=== PATIENT | female | born 1985 | race African-American/Black ===

== ENCOUNTER 2023-07-13 08:45 | Emergency (ER) | payer MEDICAID, SELFPAY ==
[2023-07-13 08:51] VITALS: BP 145/87; PULSE 108; RESP 16; TEMP 36.9; O2SAT 100; BMI 30.5
[2023-07-13 11:53] VITALS: BP 141/94; PULSE 93; RESP 16; TEMP 36.9; O2SAT 99
[2023-07-13 19:35] VITALS: BP 141/91; PULSE 63; RESP 16; TEMP 36.6; O2SAT 100
[2023-07-13 22:31] VITALS: BP 132/86; PULSE 101; RESP 16; TEMP 37.1; O2SAT 97
--- NOTE | 2023-07-13 23:43 | ED.CHESTPAIN ---
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 Patient's symptoms started about 2 weeks ago it is mostly in the mid chest and right side chest pain with no radiation, no other associated symptoms,, patient feels the pain is outside on the chest wall had similar pain when she had a mass on her left breast had mammogram about 2 years ago as reported by the patient has fibrocystic cystic breast changes, pain is reproducible to hand touch, no SOB, no recent travel, no lower extremity swelling or tenderness, no family history sudden at young age or cardiac disease at young age. Related Data Allergies Allergy/AdvReac Type Severity Reaction Status Date / Time No Known Allergies Allergy Verified 07/13/23 08:49 [No Known Allergies*] Review of Systems Review of Systems: all other systems are reviewed and are negative Constitutional: Reports as per HPI and Reports no additional constitutional complaints Eyes: Reports as per HPI and Reports no additional eye complaints Reports system reviewed and no additional complaints, except as documented Cardiovascular: Reports as per HPI and Reports no additional cardiovascular complaints Respiratory: Reports as per HPI and Reports no additional respiratory complaints Gastrointestinal: Reports as per HPI and Reports no additional gastrointestinal complaints Genitourinary: Reports no additional female genitourinary complaints Musculoskeletal: Reports no additional musculoskeletal complaints Skin/Breast: Reports system reviewed and no additional complaints, except as docu Psychiatric: Reports no additional psychiatric complaints Endocrine: Reports no additional endocrine complaints Hematologic/Lymphatic: Reports no additional hematologic/lymphatic complaints Allergic/Immunologic: Reports no additional allergic/immunologic complaints Reports system reviewed and no additional complaints, except as documented and Reports Abnormal speech present [facility] Social History Social History Smoked in Last 30 Days: No Use of substances other than those prescribed or required for medical reasons: No Advance Directives: No Physical Exam Vital Signs: Vital Signs: Last Vital Signs Temp 98.7 F 07/13/23 22:31 Pulse 101 H 07/13/23 22:31 Resp 16 07/13/23 22:31 BP 132/86 07/13/23 22:31 Pulse Ox 97 07/13/23 22:31 O2 Del Method Room Air 07/13/23 22:31 BMI result Body Mass Index 30.5 Vital signs have been reviewed and appear to be correct. Blood pressure elevated. Heart rate normal. Respiratory rate normal. Temperature normal. Oxygen saturation normal. Appearance: Alert. Oriented X3. No acute distress. Head: Normal external exam. Normocephalic. Atraumatic. No Carrillo signs noted. No raccoon eyes noted Eyes: PERRLA. EOMI. Conjunctiva and sclera normal. Eyelids normal. ENT: TM's Normal. Pharynx normal. Uvula midline. Moist mucous membranes. No trismus noted. No drooling noted. No muffled voice noted. Neck: Normal inspection. Neck supple. FROM. No adenopathy. Thyroid Normal. No meningeal signs. No neck mass noted. CVS: Normal heart rate and rhythm. Heart sound normal. No murmurs noted. Pulses normal throughout. Respiratory: No respiratory distress. Painless inspiration. Breath sounds normal. No wheezes/rales/rhonchi noted. Chest nontender. No accessory muscle usage noted or decreased air movement noted. Bilateral breast exam: Small 1 x 1 cm mobile nodule in the left breast under the nipple patient stated is been there for 2 years had a mammogram showed fibrocystic change otherwise no lymphadenopathy, no deformity, no step-off. Abdomen: Soft and nontender. Bowel sounds normal in all 4 quadrants. No distention noted. No organomegaly noted. No visible injury noted. Back: No CVA tenderness. Full range of motion noted. Skin: Skin warm and dry. Normal skin color. Normal skin turgor. No rashes/lesions/lacerations noted. Extremities: No lower extremity edema. Extremities exhibit normal range of motion. Extremities nontender. Neuro: Oriented X 3. Cranial nerve exam: II-XII are grossly intact No motor deficit. No sensory deficit. Reflexes normal. Course Reevaluation(s) Reevaluation #1: 38-year-old female with known history of fibrocystic changes of the breast last mammogram was 2 years ago patient was instructed to follow-up with PCP and discuss having another mammogram to evaluate for any other breast mass. Chest pain is clearly originating from the chest wall. Time: 23:50 Medical Decision Making Differential Diagnosis Differential Diagnoses: The differential diagnosis associated with the presentation includes ( ACS, pneumonia, pneumothorax, pleural effusion, breast mass, electrolyte abnormality, severe anemia.) Admission/Observation Consideration of admission/observation: Escalation of care including admission/observation considered Lab Data MDM Lab Attestation statement: I reviewed the patient's lab results. 07/13/23 11:47 07/13/23 11:47 Labs: Lab Results 07/13/23 07/13/23 Range/Units 11:47 15:49 WBC 9.1 (4.8-10.8) X10*3/uL RBC 4.44 (4.20-5.50) X10*6/uL Hgb 11.4 L (12.0-16.0) g/dl Hct 35.9 L (37.0-47.0) % MCV 80.9 (80.0-98.0) fL MCH 25.7 L (27.0-33.0) pg MCHC 31.8 (31.0-35.0) g/dl RDW 16.5 H (11.0-16.0) % Plt Count 348 (160-400) X10*3/uL MPV 9.3 L (9.4-12.3) fL Immature Gran % (Auto) 0.2 (0.0-0.4) % Neut % (Auto) 54.9 (45-73) % Lymph % (Auto) 37.0 (20-40) % [place] % (Auto) 5.8 (2-11) % Eos % (Auto) 1.8 (0-4) % Baso % (Auto) 0.3 (0-2) % Lymph # (Auto) 3.4 (1.2-4.9) X10*3/uL [place] # (Auto) 0.5 (0.1-1.2) X10*3/uL Eos # (Auto) 0.2 (0.0-0.4) X10*3/uL Baso # (Auto) 0.0 (0.0-0.2) X10*3/uL Abs Immat Gran (auto) 0.02 (0.00-0.03) X10*3/uL Absolute Neuts (auto) 5.0 (2.0-8.3) x10*3/uL Absolute Nucleated RBC 0.000 (0.0-0.012) X10*3/uL Nucleated RBC % (auto) 0.0 (0.0-0.2) /100WBC Sodium 139 (135-145) mmol/L Potassium 3.8 (3.3-5.1) mmol/L Chloride 109 H (96-108) mmol/L Carbon Dioxide 23 (22-29) mmol/L Anion Gap 11 L (12-20) BUN 13 (9-16) mg/dL Creatinine 0.78 (0.5-1.4) mg/dL Estim Creat Clear Calc 88.6 Estimated GFR > 60 Random Glucose 109 (60-115) mg/dL Calcium 9.2 (8.4-10.2) mg/dL Troponin I High Sens < 2.7 < 2.7 (<3.5-17.0) ng/L Independent Interpretation I performed an independent interpretation of an: EKG ( normal sinus rhythm at 96 beats per minutes normal axis deviation, normal intervals, no significant change from prior EKG.) and Plain X-Ray ( chest: No acute cardiopulmonary disease.) Radiology Impression Discussion of test interpretation with radiology: I have reviewed the radiologist's reading. Discharge Plan Discharge Clinical Impression: Atypical chest pain Instructions: Breast Mass (ED), Chest Wall Pain (ED) Additional Instructions: discuss with your PCP the need for mammogram. Referrals: Name,MD Leo [Primary Care Provider] -
[2023-07-13 23:56] VITALS: BP 119/80; PULSE 89; RESP 16; O2SAT 96
== END 2023-07-13 23:57 | disposition home or self-care (01) ==
PROVIDERS: Emergency Provider Emergency Medicine; PCP Internal Medicine Geriatric Medicine
DX: R07.89 Other chest pain (principal)
CPT/HCPCS: 36415; 71045; 80048; 84484; 85025; 93005; 99283; 99285

== ENCOUNTER → 2023-07-13 08:54 | Outpatient (BNV) | payer MEDICAID, SELFPAY | PROVIDERS: PCP Internal Medicine Geriatric Medicine; Visit Provider Internal Medicine Cardiovascular Disease | DX: R07.9 Chest pain, unspecified (principal) | CPT/HCPCS: 93010 ==

== ENCOUNTER 2023-08-03 10:37 | Outpatient (REF) | payer MEDICAID, SELFPAY ==
--- NOTE | ~2023-08-03 | US_ITS ---
EXAMINATION: MM DIAGNOSTIC DIGITAL BREAST TOMOSYNTHESIS, BILATERAL US BREAST LIMITED, LEFT MAMMOGRAPHY: CLINICAL INFORMATION: 38-year-old female complaining of palpable periareolar lesion at 3:00 axis left breast. History of benign biopsies on the right in [place]. Patient is due for bilateral screening as well. COMPARISON: Mammography: 02/25/2016, 04/07/2014 ([place]). TECHNIQUE: Digital breast tomosynthesis is performed in both the craniocaudal and mediolateral oblique views along with computer-aided detection (CAD). Synthesized 2D images are generated from the tomosynthesis. In addition, spot compression 3-D left MLO and CC views were obtained, as well as a full-field 3-D left ML view. FINDINGS: The breasts are heterogeneously dense, which may obscure small masses (ACR BI-RADS breast composition Category c). There are 2 post benign biopsy clips in the inferior and medial right breast. There are numerous bilateral circumscribed oval and rounded masses, consistent with numerous cysts, the majority of which appear smaller than on prior exams. The 2 oval masses in the right inferior breast are smaller than previous, consistent with benign entities. Parenchyma appears fibrocystic and nodular. This is stable. There are numerous scattered calcifications bilaterally within the parenchyma of both breasts, the majority of which layer on the ML image, suggesting milk of calcium with likely superimposed adenosis. These findings are similar to prior of 2016. No suspicious grouped calcifications are evident. No definite mass or area of architectural distortion is seen in the periareolar left breast in the region of palpable concern 3:00 axis. There is no skin or axillary abnormality. ULTRASOUND: CLINICAL INFORMATION: As above. Palpable focus 3:00 periareolar left breast. Fibrocystic breast parenchyma. COMPARISON: None contributory. TECHNIQUE: Targeted sonographic evaluation was performed using a high frequency linear transducer. Attention was given to the 3:00 axis left breast in the region of palpable concern as directed by the patient. Selected archived documentation. FINDINGS: LEFT BREAST: -There are innumerable cysts noted throughout the parenchyma of the left breast in the scanned regions, consistent with extensive fibrocystic changes. In addition, there is marked duct ectasia in the retroareolar region of the left breast. No filling defect or intraductal mass is evident. There is a focally ectatic duct in the 3:00 axis, 2 cm from the nipple, measuring 1.0 x 0.6 x 0.7 cm, with good through transmission, slightly lobulated border, and a small amount of mobile debris seen within. This appears connected to a accessory duct which courses anteriorly into the periareolar region. No associated abnormal mass or color doppler flow identified involving this structure. This finding is benign. This likely represents the patient's palpable abnormality. To be cautious, six-month interval targeted left breast ultrasound recommended to ensure stability. US/US breast LT limited mamm only IMPRESSION: There are no findings suspicious for malignancy in either breast. -The patient appears to be feeling a focally ectatic duct in the 3:00 axis of the left breast, 2 cm from the nipple, measuring 1.0 x 0.6 x 0.7 cm. Because of the slightly lobulated border, and mild specular debris internally, six-month interval follow-up targeted left breast ultrasound recommended to ensure stability. -There are numerous cysts and fibrocystic changes throughout both heterogeneously dense parenchymal regions. There are also numerous scattered parenchymal calcifications, which layer on the left ML view suggesting milk of calcium and benignity. No suspicious calcifications. -2 prior benign biopsies in the right breast inferior one half. OVERALL ASSESSMENT: Mammography: BI-RADS 3 - Probably benign finding(s) - 6 month follow-up suggested Ultrasound: BI-RADS 3 - Probably benign finding(s) - 6 month follow-up suggested RECOMMENDATION: 6 Month F/U Results were provided to the patient at time of visit by the technologist. This patient's information was entered into a reminder system with a target due date for their next mammogram.
== END 2023-08-03 10:38 | disposition home or self-care (01) ==
LOC: HO.MAMMO 10:37
PROVIDERS: PCP Internal Medicine Geriatric Medicine; Visit Provider Nurse Practitioner Family
DX: N63.42 Unspecified lump in left breast, subareolar (principal)
CPT/HCPCS: 76642; 77062; 77066

== ENCOUNTER → 2023-08-03 11:00 | Outpatient (BNV) | payer MEDICAID, SELFPAY | PROVIDERS: PCP Internal Medicine Geriatric Medicine; Visit Provider Radiology Diagnostic Radiology | DX: N63.42 Unspecified lump in left breast, subareolar (principal) | CPT/HCPCS: 76642; 77062; 77066 ==

== ENCOUNTER 2024-02-13 14:32 | Outpatient (REF) | payer MEDICAID, SELFPAY ==
--- NOTE | ~2024-02-13 | US_ITS ---
EXAMINATION: US DIAGNOSTIC ULTRASOUND BREAST, LEFT CLINICAL INFORMATION: 6 month follow-up for hypoechoic probably benign focally ectatic duct with debris in the 3:00 axis of the left breast. COMPARISON: 08/03/2023 TECHNIQUE: Ultrasound of the left breast is performed with real-time landaverde scale imaging and color Doppler. Attention was given to the 2:00 axis through the 4:00 axis to include the region of concern. FINDINGS: A focally ectatic duct filled with mild specular debris at the 2:00 axis of the left breast, 2 cm from the nipple, currently measures visually and mammographically smaller (currently 0.6 x 0.7 x 0.9 cm and previously 1.0 x 0.6 x 1.1 cm). It is hence benign, and no further follow-up recommended. There are associated fibrocystic changes with small daughter cysts present. US/US breast LT limited mamm only IMPRESSION: Slightly smaller rounded ectatic duct in the left breast 2:00 axis, 2 cm from the nipple, with associated fibrocystic changes are benign. No further follow-up recommended. Recommend the patient resume screening mammography in one year. ASSESSMENT: BI-RADS 2 - Benign Findings RECOMMENDATION: 1 year F/U This patient's information was entered into a reminder system with a target due date for their next mammogram.
== END 2024-02-13 14:33 | disposition home or self-care (01) ==
LOC: HO.MAMMO 14:32
PROVIDERS: Visit Provider Internal Medicine Geriatric Medicine
DX: N60.02 Solitary cyst of left breast (principal)
CPT/HCPCS: 76642

== ENCOUNTER → 2024-02-13 15:30 | Outpatient (BNV) | payer MEDICAID, SELFPAY | PROVIDERS: Visit Provider Radiology Diagnostic Radiology | DX: N63.25 Unspecified lump in the left breast, overlapping quadrants (principal) | CPT/HCPCS: 76642 ==

== ENCOUNTER 2024-04-09 16:17 | Outpatient (REF) | payer MEDICAID, SELFPAY ==
[2024-04-09 17:39] LABS: MANUAL DIFF FLAG NO
[2024-04-09 18:13] LABS: Basophils Percent Auto 0.2 % (0-2); Eosinophils Absolute Auto 0.1 X10*3/uL (0.0-0.4); Eosinophils Percent Auto 0.9 % (0-4); Hematocrit 29.5 % (37.0-47.0); Hemoglobin 9.2 g/dl (12.0-16.0); Imm Gran Abs Auto 0.02 X10*3/uL (0.00-0.03); Imm Gran Pct Auto 0.2 % (0.0-0.4); Lymphocytes Percent Auto 22.8 % (20-40); Mean Corpuscular HGB Conc 31.2 g/dl (31.0-35.0); Mean Corpuscular Hemoglobin 22.8 pg (27.0-33.0); Mean Corpuscular Volume 73.2 fL (80.0-98.0); Mean Platelet Volume 9.3 fL (9.4-12.3); Monocytes Absolute Auto 0.7 X10*3/uL (0.1-1.2); Monocytes Percent Auto 8.5 % (2-11); Neutrophils Absolute Auto 5.9 x10*3/uL (2.0-8.3); Neutrophils Percent Auto 67.4 % (45-73); Platelet Count 453 X10*3/uL (160-400); Red Blood Count 4.03 X10*6/uL (4.20-5.50); Red Cell Distribution Width 20.6 % (11.0-16.0); White Blood Count 8.7 X10*3/uL (4.8-10.8)
[2024-04-09 18:26] LABS: Alanine Aminotransferase 15 U/L (0-31); Albumin Level 3.9 g/dL (3.5-5.0); Alkaline Phosphatase 65 U/L (39-117); Anion Gap 13 (12-20); Aspartate Amino Transferase 16 U/L (5-31); Bilirubin Total 0.4 mg/dL (0.0-1.0); Blood Urea Nitrogen 12 mg/dL (9-16); C Reactive Protein 6.31 mg/dL (< or = 0.50); Calcium 9.4 mg/dL (8.4-10.2); Carbon Dioxide 23 mmol/L (22-29); Chloride 106 mmol/L (96-108); Estimated Glomerular Filt Rate > 60; Glucose Random 102 mg/dL (60-115); Potassium 3.5 mmol/L (3.3-5.1); Sodium 138 mmol/L (135-145); Total Protein 7.9 g/dL (6.5-8.0)
== END 2024-04-09 16:18 | disposition home or self-care (01) ==
LOC: HO.HHCL 16:17
PROVIDERS: Visit Provider Family Medicine
DX: R10.32 Left lower quadrant pain (principal)
CPT/HCPCS: 36415; 80053; 85025; 86140

== ENCOUNTER 2024-08-05 09:07 | Outpatient (REF) | payer MEDICAID, SELFPAY ==
--- OUTSIDE RECORDS SUMMARY | 2024-08-05 13:26 | XMS_ITS | Clinical Summary ---
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 180 tablet 07/27/19 24 Active ferrous sulfate 325 (65 Fe) MG EC tabletIndicatio ns:Microcytic anemia TAKE 1 TABLET BY MOUTH WITH BREAKFAST 90 tablet 07/08/20 24 Active ferrous sulfate 325 (65 Fe) MG EC tabletIndicatio ns:Microcytic anemia TAKE 1 TABLET (325 MG) BY MOUTH WITH BREAKFAST 90 tablet 04/10/20 24 024 Discontinued Active Problems Problem Noted Date Diagnosed Date Subareolar mass of left breast 07/25/2023 Assessment & Plan (07/25/2023 2:11 PM EST): Has US already scheduled for left breast on 08/03/23, I told her that we'll decide on right breast US, after dx ammo. Dx mammo remi to be sent to [facility] [place] per protocol (see encounters) Elevated blood pressure reading 07/25/2023 Assessment & Plan (07/25/2023 2:09 PM EST): BP machine sent to [facility] pharmacy, should check BP three times per week and fu with PCP in 1m Counseled re low salt intake, weight reduction. Gastroesophageal reflux disease 07/25/2023 Assessment & Plan (07/25/2023 2:10 PM EST): Most likely culprit of current sxs. Counseled re small and fractioned meals, avoid going to bed right after meals, avoid spicy or greasy food Complete info re life style modification and GERD given today Start Prilosec 20mg bid x 1m and fu w PCP Herpes zoster without complication 07/20/2023 07/20/2023 Goiter 02/23/2016 07/20/2023 Fibroadenoma of breast 02/23/2016 4 Encounters Date Type Department Care Team Description 07/06/2024 Refill [facility] [address] [place] [id number] Tai Geronimo MD Microcytic anemia from Last 3 Months Social History Tobacco Use Types Packs/Day Years Used Date Smoking Tobacco: Never Smokeless Tobacco: Never Tobacco Cessation:Counseling Given: Not Answered Alcohol Use Standard Drinks/Week Comments Never 0 (1 standard drink = 0.6 oz pur e alcohol) Depression Answer Date Recorded Patient Health Questionnaire-9 Score 2 07/07/2023 Patient Health Questionnaire-9 Score 2 07/07/2023 Last PHQ-9: Questionnaire Data Not on file 1 Housing Stability Answer Date Recorded What is your housing situation today? I have brionna manuel 07/07/[address] you li ve. Do you have problems with any of the following? None of the above 07/07/2023 Food Insecurity Answer Date Recorded Within the past 12 months, y ou worried that your food would run out before you got money to buy more: Never True 07/07/2023 Within the past 12 months,th e food you bought just didn't last and you didn't have enough money to get more: Never True Transportation Answer Date Recorded In the past 12 months, has l ack of transportation kept you from medical appts, meetings, work or from getting things needed for daily living? No 07/07/2023 Utilities Answer Date Recorded In the past 12 months, has t he electric, gas, oil or water company threatened to shut off services in your home? I am not sure 07/07/2023 Depression Answer Date Recorded Patient Health Questionnaire-2 Score 0 07/07/2023 Comments Unknown Sex and Gender Information Value Date Recorded Sex Assigned at Female 05/09/2022 10:29 AM EDT Legal Sex Female 10:29 AM EDT Gender Identity Female 05/09/2022 10:29 AM EDT Sexual Orientation Straight 05/09/2022 10 :29 AM EDT Last Filed Vital Signs Vital Sign Reading Time Taken Comments Blood Pressure 139/91 04/08/2024 5:19 PM EDT Pulse 108 04/08/2024 5:19 PM EDT Temperature 36.8 ??C (98.3 ??F) 04/08/2024 5:19 PM ED T Respiratory Rate 20 04/08/2024 5:19 PM EDT Oxygen Saturation 99% 04/08/2024 5:19 PM EDT Inhaled Oxygen Concentration - - Weight 72.1 kg (159 lb) 04/08/2024 5:19 PM EDT Height 154.9 cm (5' 1 ) 04/08/2024 5:19 PM EDT Body Mass Index 30.04 04/08/2024 5:19 PM EDT Plan of Treatment Health Maintenance Due Date Last Done Comments HIV Screening 1984 Alcohol/Substance Use Screening 1996 Family Planning (PISQ) 1999 Hepatitis C Screening 2002 DTaP/Tdap/Td Vaccines (1 - Tdap) 2003 Hepatitis B Vaccines (1 of 3 - 19+ 3-dose series) 2003 Pap Smear 2005 Cervical Cancer Screening 2014 HPV/Cotest 2014 COVID-19 Vaccine (3 - 2023-2 5 season) 2024 04/02/2021, 03/12/2021 Influenza Vaccine (#1) 2024 Depression Screening 07/07/2024 07/07/2023, 07/07/2023 SDOH Screening 07/07/2024 07/07/2023 Tobacco Screening 04/08/2025 04/08/2024 Mammogram 02/12/2026 02/13/2024, 08/03/2023, 08/03/2023 Zoster Vaccines (1 of 2) 2034 RSV Patients and Patients Aged 60 years or older (1 - 1-dose 75+ series) 2059 HIB Vaccines Aged Out No longer eligi ble based on patient's age to complete this topic HPV Vaccines Aged Out No longer eligi ble based on patient's age to complete this topic Hepatitis A Vaccines Aged Out No long er eligible based on patient's age to complete this topic IPV Vaccines Aged Out No longer eligi ble based on patient's age to complete this topic Meningococcal Vaccine Aged Out No franko viviana eligible based on patient's age to complete this topic Pneumococcal Vaccine: Pediatrics (0 to 5 Years) and At-Risk Patients (6 to 64 Years) Aged Out No longer eligible b ased on patient's age to complete this topic RSV under 20 months Aged Out No longe r eligible based on patient's age to complete this topic Rotavirus Vaccines Aged Out No longer eligible based on patient's age to complete this topic Procedures Procedure Name Priority Date/Time Associated Diagnosis Comments BI US BREAST LIMITED LEFT Routine 02/13/2024 3:30 PM EDT from Last 3 Months or Most Recently Relevant to Health Maintenance Results * BI US Breast Limited Left (02/13/2024 3:30 PM EDT) Anatomical Region Laterality Modality Breast Left Ultrasound 02/13/2024 3:30 PM EDT Narrative 02/13/2024 4:28 PM EDT ? [facility] ? [address] ?[place] [address] ? Ultrasound Report ? Signed ? Patient: Isma,Leia R ?MR#: [id number] ?? 6 ? : 1985 ?Acct:[id number] ? Age/Sex: 38 / F ?ADM Date: 02/13/24 ? Loc: HO.MAMMO ? Attending Dillon Joiner MD ? Ordering Physician: Name,Leo MOJICA ?? Date of Service: 02/13/24 ?? Procedure(s): US breast LT limited mamm only ?? Accession Number(s): [id number] ? cc: NameLeo MD ? EXAMINATION: ?? US DIAGNOSTIC ULTRASOUND BREAST, LEFT ? CLINICAL INFORMATION: ? 6 month follow-up for hypoechoic probably benign focally ectatic duct ?? with debris in the 3:00 axis of the left breast. ? COMPARISON: ?? 08/03/2023 ? TECHNIQUE: ?? Ultrasound of the left breast is performed with real-time landaverde scale ?? imaging and color Doppler. Attention was given to the 2:00 axis through ?? the 4:00 axis to include the region of concern. ? FINDINGS: ? A focally ectatic duct filled with mild specular debris at the 2:00 ?? axis of the left breast, 2 cm from the nipple, currently measures ?? visually and mammographically smaller (currently 0.6 x 0.7 x 0.9 cm and ?? previously 1.0 x 0.6 x 1.1 cm). It is hence benign, and no further ?? follow-up recommended. There are associated fibrocystic changes with ?? small daughter cysts present. ? US/US breast LT limited mamm only ?? IMPRESSION: ?? Slightly smaller rounded ectatic duct in the left breast 2:00 axis, 2 ?? cm from the nipple, with associated fibrocystic changes are benign. No ?? further follow-up recommended. ? Recommend the patient resume screening mammography in one year. ? ASSESSMENT: ? BI-RADS 2 - Benign Findings ? RECOMMENDATION: ?? 1 year F/U ? This patient's information was entered into a reminder system with a ?? target due date for their next mammogram. ? Dictated By: ?Travis Echols MD ? Signed By: ?<Electronically signed by Travis Echols MD in OV> ?02/13/24 1625 ? DD/ 1530 ? TD/TT: ? Ticket Collector Or Usher: ? Procedure Note Samina, Image - 02/13/2024 [facility] [address] [place] [address] [place]. [place], [place] [id number] Ultrasound Report Signed Patient: Leia Ashby R#: [id number] 6 : 1985Acct:[id number] Age/Sex: 38 / FADM Date: 02/13/24 Loc: [facility] Attending Dr: Leo Joiner MD Ordering Physician: Leo Joiner MD Date of Service: 02/13/24 Procedure(s): US breast LT limited mamm only Accession Number(s): [id number] cc: Leo Joiner MD EXAMINATION: US DIAGNOSTIC ULTRASOUND BREAST, LEFT CLINICAL INFORMATION: 6 month follow-up for hypoechoic probably benign focally ectatic duct with debris in the 3:00 axis of the left breast. COMPARISON: 08/03/2023 TECHNIQUE: Ultrasound of the left breast is performed with real-time landaverde scale imaging and color Doppler. Attention was given to the 2:00 axis through the 4:00 axis to include the region of concern. FINDINGS: A focally ectatic duct filled with mild specular debris at the 2:00 axis of the left breast, 2 cm from the nipple, currently measures visually and mammographically smaller (currently 0.6 x 0.7 x 0.9 cm and previously 1.0 x 0.6 x 1.1 cm). It is hence benign, and no further follow-up recommended. There are associated fibrocystic changes with small daughter cysts present. US/US breast LT limited mamm only IMPRESSION: Slightly smaller rounded ectatic duct in the left breast 2:00 axis, 2 cm from the nipple, with associated fibrocystic changes are benign. No further follow-up recommended. Recommend the patient resume screening mammography in one year. ASSESSMENT: BI-RADS 2 - Benign Findings RECOMMENDATION: 1 year F/U This patient's information was entered into a reminder system with a target due date for their next mammogram. 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
--- OUTSIDE RECORDS SUMMARY | 2024-08-05 13:26 | XMS_ITS | Encounter Summary ---
Author Organization [employer] Address [address] [place] [address] Care Team Providers Care Weight Tester Name Role Phone Name, Leo MOJICA Primary Care Provider [phone] Reason for Visit * Reason Comments Med Refill Encounter Details Date Type Department Care Team ([facility] st Contact Info) Description 07/06/2024 Refill [facility] [address] [place], [place] [id number] Tai Geronimo MD [address] [place] [address] Microcytic anemia Social History Tobacco Use Types Packs/Day Years Used Date Smoking Tobacco: Never Smokeless Tobacco: Never Alcohol Use Standard Drinks/Week Comments Never 0 [...] Orientation Straight 05/09/2022 10 :29 AM EDT documented as of this encounter Plan of Treatment Not on file documented as of this encounter Visit Diagnoses Diagnosis Microcytic anemia Unspecified iron deficiency anemia documented in this encounter Additional Health Concerns Assessment Noted Time PHQ-9 Depression Total Score: 2 07/07/20 23 10:07 AM EST documented as of this encounter Care Teams Weight Tester Relationship Specialty Start Date End Date Name, MD Leo [address] [place] [address] PCP - General Internal Medicine 07/25/23 documented as of this encounter
--- OUTSIDE RECORDS SUMMARY | 2024-08-05 13:26 | XMS_ITS | Encounter Summary ---
Author Organization Info [facility] Address [address] [place] [address] 7t [place] [address] Care Team Providers Care Domestic Travel Consultant Name Role Phone Name, Leo MOJICA Primary Care Provider [phone] Leo Joiner MD Primary Care Provider Encounter Details Date Type Department Care Team (Latest Contact Info) Description 11/07/2018 Abstract [facility] CONVERSIONS Dental, Provider, DDS Social History Tobacco Use Types Packs/Day Years Used Date Smoking Tobacco: Never Assessed Comments Unknown Sex and Gender Information Value Date Recorded Sex Assigned at Female 05/09/2022 10:29 AM EDT Legal Sex Female 10:29 AM EDT Gender Identity Female 05/09/2022 10:29 AM EDT Sexual Orientation Straight 05/09/2022 10 :29 AM EDT documented as of this encounter Plan of Treatment Not on file documented as of this encounter Visit Diagnoses Not on filedocumented in this encounter Care Teams Domestic Travel Consultant Relationship Specialty Start Date End Date Leo Joiner MD [address] [place] [address] PCP - General Family Medicine 02/08/16 07/12/23 Leo Joiner MD [address] [place] [address] PCP - General Internal Medicine 07/25/23 documented as of this encounter
== END 2024-08-05 09:08 | disposition home or self-care (01) ==
LOC: HO.MAMMO 09:07
PROVIDERS: PCP Internal Medicine Geriatric Medicine; Visit Provider Internal Medicine Geriatric Medicine
DX: Z12.31 Encounter for screening mammogram for malignant neoplasm of breast (principal)
CPT/HCPCS: 77063; 77067

== ENCOUNTER → 2024-08-05 09:15 | Outpatient (BNV) | payer MEDICAID, SELFPAY | PROVIDERS: PCP Internal Medicine Geriatric Medicine; Visit Provider Internal Medicine | DX: Z12.31 Encounter for screening mammogram for malignant neoplasm of breast (principal) | CPT/HCPCS: 77063; 77067 ==

== ENCOUNTER 2024-09-26 12:47 | Outpatient (REF) | payer MEDICAID, SELFPAY ==
--- NOTE | ~2024-09-26 | US_ITS ---
EXAMINATION: MM DIAGNOSTIC DIGITAL BREAST TOMOSYNTHESIS, BILATERAL Limited bilateral ultrasound. CLINICAL INFORMATION: Call back from screening for bilateral asymmetries. COMPARISON: Mammography: Priors on PACS. TECHNIQUE: Digital breast tomosynthesis is performed in both the craniocaudal and mediolateral oblique views along with computer-aided detection (CAD). Synthesized 2D images are generated from the tomosynthesis. FINDINGS: The breasts are heterogeneously dense, which may obscure small masses (ACR BI-RADS breast composition Category c). Left: Asymmetry in the superior left breast on MLO view partially effaces on additional imaging projections. There is no suspicious calcifications or other abnormal findings. Targeted color Doppler ultrasound scanning in the upper central breast from 10-2 o'clock demonstrates multiple simple cysts. There is no sonographic abnormality. Right: Targeted color Doppler ultrasound scanning in the right axilla demonstrates multiple normal-appearing axillary lymph nodes and normal axillary tissue. One of these axillary lymph nodes likely correlates with the oval low axillary mass which had morphology of an axillary lymph node. US/US breast BI limited mamm only IMPRESSION: Right: Normal low axillary lymph node. Benign. Left: 1. Multiple simple cysts. Benign. 2. Asymmetry superior left breast without sonographic correlate. Recommend 6 month follow-up left breast mammography for further evaluation of stability. ASSESSMENT: BI-RADS BI-RADS 3 - Probably benign finding(s) - 6 month follow-up suggested RECOMMENDATION: 6 Month F/U Results were provided to the patient at time of visit by the technologist. This patient's information was entered into a reminder system with a target due date for their next mammogram. Electronically signed by: Anitha Nation DO 09/26/2024 02:23 PM EDT
== END 2024-09-26 12:48 | disposition home or self-care (01) ==
LOC: HO.MAMMO 12:47
PROVIDERS: PCP Internal Medicine Geriatric Medicine; Visit Provider Internal Medicine Geriatric Medicine
DX: N64.89 Other specified disorders of breast (principal); R92.333 Mammographic heterogeneous density, bilateral breasts; N60.02 Solitary cyst of left breast
CPT/HCPCS: 76642; 77061; 77065

== ENCOUNTER → 2024-09-26 13:30 | Outpatient (BNV) | payer MEDICAID, SELFPAY | PROVIDERS: PCP Internal Medicine Geriatric Medicine; Visit Provider Internal Medicine | DX: R92.8 Other abnormal and inconclusive findings on diagnostic imaging of breast (principal) | CPT/HCPCS: 76642; 77061; 77065 ==

== ENCOUNTER 2025-03-31 08:23 | Outpatient (REF) | payer MEDICAID, SELFPAY ==
--- NOTE | ~2025-03-31 | MM_ITS ---
EXAMINATION(S): MM DIAGNOSTIC DIGITAL BREAST TOMOSYNTHESIS, LEFT CLINICAL INFORMATION: This is a 6-month follow-up of left breast asymmetry in the superior breast on the MLO view without sonographic correlate. COMPARISON: Bilateral mammogram on August 05, 2024. Left breast diagnostic mammogram/ultrasound on September 26, 2024 TECHNIQUE: Digital breast tomosynthesis is performed in both the mediolateral oblique and craniocaudal views along with computer-aided detection (CAD). Synthesized 2D images are generated from the tomosynthesis. Spot compression tomosynthesis were obtained. FINDINGS: BREAST COMPOSITION: The breasts are heterogeneously dense, which may obscure small masses (ACR BI-RADS breast composition Category c). LEFT BREAST: Previously suggested asymmetry in the upper breast on the MLO view, that partially effaces with spot compression, is similar to September 2024. MM/MM tomosynthesis diagnostic LT IMPRESSION: LEFT BREAST: Asymmetry in the upper breast on the MLO view, unchanged from September 2024. Probably benign. Short-term follow-up is recommended as bilateral diagnostic mammogram expected in July 2025. ASSESSMENT: BI-RADS 3 - Probably benign finding(s) - 6 month follow-up suggested RECOMMENDATION: 6 Month F/U Results were provided to the patient at time of visit by the technologist. This patient's information was entered into a reminder system with a target due date for their next mammogram. Electronically signed by: Edwin Whitfield MD 03/31/2025 08:52 AM EDT
--- OUTSIDE RECORDS SUMMARY | 2025-03-31 09:33 | XMS_ITS | Encounter Summary ---
Author Organization [employer] Address [address] [facility] 7[address] [place] [address] Care Team Providers Care Assistant Child Care Teacher Name Role Phone Name, Leo MOJICA Primary Care Provider [phone] Leo Joiner MD Primary Care Provider [phone] Encounter Details Date Type Department Care Team (Latest Contact Info) Description 11/07/2018 Abstract C CONVERSIONS Dental, Provider, DDS Social History Tobacco [...] on filedocumented in this encounter Care Teams Assistant Child Care Teacher Relationship Specialty Start Date End Date Leo Joiner MD [address] [place] [address] PCP - General Family Medicine 02/08/16 07/12/23 Leo Joiner MD [address] [place] [address] PCP - General Internal Medicine 07/25/23 documented as of this encounter
--- OUTSIDE RECORDS SUMMARY | 2025-03-31 09:33 | XMS_ITS | Clinical Summary ---
Author Organization [employer] Address [address] [facility] 7t [place] [address] Care Team Providers Care Tractor Trailer Operator Name Role Phone Name, Leo MOJICA Primary Care Provider [phone] Allergies No known active allergies Medications Blood Pressure Monitor kitIndications:E levated blood pressure reading Use as directed 3x/week 1 kit 4 Active Omeprazole 20 MG tablet delayed-releaseI ndications:Gastr oesophageal reflux disease, unspecified whether esophagitis present Take 1 tablet by mouth 2 times daily. 180 tablet 4 Active ferrous sulfate 325 (65 Fe) MG EC tabletIndication s:Microcytic anemia TAKE 1 TABLET BY MOUTH WITH BREAKFAST 90 tablet 4 Active Active Problems Problem Noted Date Diagnosed Date Abscess of right breast 10/17/2024 Assessment & Plan (10/17/2024 1:44 PM EDT): Likely developing abscess. Swelling on exam consistent with small pustule, approx. 1 cm, induration, mild erythema. No drainage. -prescribed cephalexin (Keflex) 500 MG, Take 1 capsule (500 mg) by mouth 3 times daily for 5 days Subareolar mass of left breast 07/25/2023 Assessment & Plan (07/25/2023 2:11 PM EST): Has US already scheduled for left breast on 08/03/23, I told her that we'll decide on right breast US, after dx ammo. Dx mammo remi to be sent to [facility] per protocol (see encounters) Elevated blood pressure reading 07/25/2023 Assessment & Plan (07/25/2023 2:09 PM EST): BP machine sent to [facility] pharmacy, should check BP three times [...] Encounters Date Type Department Care Team Description 03/31/2025 Orders Only [facility] MEDICINE [address] [place] [address] Name, MD Leo from Last 3 Months Social History Tobacco [...] Sign Reading Time Taken Comments Blood Pressure 133/90 10/17/2024 12:57 PM EDT Pulse 101 10/17/2024 12:57 PM EDT Temperature 36.6 C (97.9 F) 10/17/2024 12:57 PM EDT Respiratory Rate 16 10/17/2024 12:57 PM EDT Oxygen Saturation 99% 04/08/2024 5:19 PM EDT Inhaled Oxygen Concentration - - Weight 72.7 kg (160 lb 3.2 oz) 10/17/2024 12:57 PM EDT Height 154.9 cm (5' 1 ) 10/17/2024 12:57 PM EDT Body Mass Index 30.27 10/17/2024 12:57 PM EDT Plan of Treatment Health Maintenance Due Date Last Done Comments HIV Screening 1984 Disability Screening 1984 Alcohol/Substance Use Screening 1996 Family Planning (PISQ) 1999 HPV Vaccines (1 - 3-dose series) 1999 Hepatitis C Screening 2002 DTaP/Tdap/Td Vaccines (1 - Tdap) 2003 Hepatitis B Vaccines (1 of 3 - 19+ 3-dose series) 2003 Pap Smear 2005 Cervical Cancer Screening 2014 HPV/Cotest 2014 Depression Screening 07/07/2024 07/07/2023, 07/07/20 23 SDOH Screening 07/07/2024 07/07/2023 COVID-19 Vaccine ( season) 2025 04/02/2021, 03/12/2021 Influenza Vaccine (#1) 2025 Diagnostic Breast Imaging 04/30/20252024, 09/26/2024, 09/26/2024, Additional history exists Tobacco Screening 10/17/2025 10/17/2024 Mammogram 03/31/2027 03/31/2025, /, 09/26/2024, Additional history exists Zoster Vaccines (1 of 2) 2034 RSV [...] patient's age to complete this topic Meningococcal B Vaccine Aged Out No l onger eligible based on patient's age to complete this topic Meningococcal Vaccine Aged Out No franko viviana eligible based on patient's age to complete this topic Pneumococcal Vaccine: Pediatrics (0 to 5 Years) and At-Risk Patients (6 to 49) Years Aged Out No longer eligible based on patient's age to complete this topic RSV under 20 months Aged Out No longe r eligible based on patient's age to complete this topic Rotavirus Vaccines Aged Out No longer eligible based on patient's age to complete this topic Procedures Procedure Name Priority Date/Time Associated Diagnosis Comments BI MAMMOGRAM DIAGNOSTIC TOMOSYNTHESIS LEFT Routine 03/31/2025 8:28 AM EDT from Last 3 Months Results * BI Mammogram Diagnostic Tomosynthesis Left (03/31/2025 8:28 AM EDT) Anatomical Region Laterality Modality Breast Left Mammography 03/31/2025 8:28 AM EDT Narrative 03/31/2025 8:54 AM EDT [facility] [address] [place] [address] Dr. [place], [place] [address] Mammography Report Signed Patient: Leia Ashby MR#: [id number] 6 : 1985 Acct:[id number] Age/Sex: 39 / F ADM Date: 03/31/25 Loc: HO.MAMMO Attending Dr: Leo Joiner MD Ordering Physician: Leo Joiner MD Results: 3.6MProbab ly Benign Finding - Short 6 M F/U Suggested Date of Service: 03/31/25 Follow Up: 6 Month F/U Procedure(s): MM tomosynthesis diagnostic LT Accession Number(s): [id number] cc: Rhys,Leo MOJICA Reason For Exam: LT BR 6M F/U FOR DENSITY EXAMINATION(S): MM DIAGNOSTIC DIGITAL BREAST TOMOSYNTHESIS, LEFT CLINICAL INFORMATION: This is a 6-month follow-up of left breast asymmetry in the superior breast on the MLO view without sonographic correlate. COMPARISON: Bilateral mammogram on August 05, 2024. Left breast diagnostic mammogram/ultrasound on September 26, 2024 TECHNIQUE: Digital breast tomosynthesis is performed in both the mediolateral oblique and craniocaudal views along with computer-aided detection (CAD). Synthesized 2D images are generated from the tomosynthesis. Spot compression tomosynthesis were obtained. FINDINGS: BREAST COMPOSITION: The breasts are heterogeneously dense, which may obscure small masses (ACR BI-RADS breast composition Category c). LEFT BREAST: Previously suggested asymmetry in the upper breast on the MLO view, that partially effaces with spot compression, is similar to September 2024. MM/MM tomosynthesis diagnostic LT IMPRESSION: LEFT BREAST: Asymmetry in the upper breast on the MLO view, unchanged from September 2024. Probably benign. Short-term follow-up is recommended as bilateral diagnostic mammogram expected in July 2025. ASSESSMENT: BI-RADS 3 - Probably benign finding(s) - 6 month follow-up suggested RECOMMENDATION: 6 Month F/U Results were provided to the patient at time of visit by the technologist. This patient's information was entered into a reminder system with a target due date for their next mammogram. Electronically signed by: Edwin Whitfield MD 03/31/2025 08:52 AM EDT Dictated By: Edwin Whitfield MD Signed By: <Electronically signed by Edwin Whitfield MD in OV> 03/31/25 0852 DD/ TD/TT: 03/31/25 0835 Managing Consultant: Procedure Note Donotuseinterpreter, Image - 03/31/2025 [facility] [address] [place], [place] [address] Mammography Report Signed Patient: Leia Ashby RMR#: [id number] 6 : 1985Acct:[id number] Age/Sex: 39 / FADM Date: 03/31/25 Loc: HO.MAMMO Attending Dr: Leo Joiner MD Ordering Physician: Leo Joiner MDResults: 3.6MProbab ly Benign Finding - Short 6 M F/U Suggested Date of Service: 03/31/25Follow Up: 6 Month F/U Procedure(s): MM tomosynthesis diagnostic LT Accession Number(s): [id number] cc: Name,Leo MOJICA Reason For Exam: LT BR 6M F/U FOR DENSITY EXAMINATION(S): MM DIAGNOSTIC DIGITAL BREAST TOMOSYNTHESIS, LEFT CLINICAL INFORMATION: This is a 6-month follow-up of left breast asymmetry in the superior breast on the MLO view without sonographic correlate. COMPARISON: Bilateral mammogram on August 05, 2024. Left breast diagnostic mammogram/ultrasound on September 26, 2024 TECHNIQUE: Digital breast tomosynthesis is performed in both the mediolateral oblique and craniocaudal views along with computer-aided detection (CAD). Synthesized 2D images are generated from the tomosynthesis. Spot compression tomosynthesis were obtained. FINDINGS: BREAST COMPOSITION: The breasts are heterogeneously dense, which may obscure small masses (ACR BI-RADS breast composition Category c). LEFT BREAST: Previously suggested asymmetry in the upper breast on the MLO view, that partially effaces with spot compression, is similar to September 2024. MM/MM tomosynthesis diagnostic LT IMPRESSION: LEFT BREAST: Asymmetry in the upper breast on the MLO view, unchanged from September 2024. Probably benign. Short-term follow-up is recommended as bilateral diagnostic mammogram expected in July 2025. ASSESSMENT: BI-RADS 3 - Probably benign finding(s) - 6 month follow-up suggested RECOMMENDATION: 6 Month F/U Results were provided to the patient at time of visit by the technologist. This patient's information was entered into a reminder system with a target due date for their next mammogram. Electronically signed by: Edwin Whitfield MD 03/31/2025 08:52 AM EDT RP Dictated By: Edwin Whitfield MD Signed By: <Electronically signed by Edwin Whitfield MD in OV> 03/31/2552 DD/ 7 TD/TT: 03/31/25834 Managing Consultant: us Leo Joiner MD IMG BI PROCEDURES Edited Result - Final from Last 3 Months Insurance * Guarantor: Leia Ashby Account Type Relation to Patient Date of Phone Billing Address [place] [address] * Guarantor: Leia Ashby Account Type Relation to Patient Date of Phone Billing Address Personal/Family Self [address] [place] Care Teams Tractor Trailer Operator Relationship Specialty Start Date End Date Name, MD Leo [address] [place] [address] PCP - General Internal Medicine 07/25/23
--- OUTSIDE RECORDS SUMMARY | 2025-03-31 09:33 | XMS_ITS | Encounter Summary ---
Author Organization [employer] Address [address] [address] [place] [address] Care Team Providers Care Internet Designer Name Role Phone Name, Leo MOJICA Primary Care Provider [phone] Encounter Details Date Type Department Care Team (Late st Contact Info) Description 03/31/2025 Orders Only [facility] MED[facility] [address] [place], [place] [id number] Name, MD Leo [address] [place] [address] Social History Tobacco Use Types Packs/Day Years [...] on file documented as of this encounter Procedures Procedure Name Priority Date/Time Associated Diagnosis Comments BI MAMMOGRAM DIAGNOSTIC TOMOSYNTHESIS LEFT Routine 03/31/2025 8:28 AM EDT documented in this encounter Results * BI Mammogram Diagnostic Tomosynthesis Left (03/31/2025 8:28 AM EDT) Anatomical Region Laterality Modality Breast Left Mammography 03/31/2025 8:28 AM EDT Narrative 03/31/2025 8:54 AM EDT [place] [place] [address] Mammography Report Signed Patient: Leia Ashby MR#: [id number] 6 : 1985 Acct:[id number] Age/Sex: 39 / F ADM Date: 03/31/25 Loc: HO.MAMMO Attending Dr: Leo Joiner MD Ordering Physician: Leo Joiner MD Results: 3.6MProbab ly Benign Finding - Short 6 M F/U Suggested Date of Service: 03/31/25 Follow Up: 6 Month F/U Procedure(s): MM tomosynthesis diagnostic LT Accession Number(s): [id number] cc: Leo Joiner MD Reason For Exam: LT BR 6M F/U [...] Whitfield MD in OV> 03/31/25 0852 DD/ 7 TD/TT: 03/31/25 0835 [employer]: Procedure Note Donotuseinterpreter, Image - 03/31/2025 [facility] [address] [place], [place] [address] Mammography Report Signed Patient: Leia Ashby RMR#: [id number] 6 : 1985Acct:[id number] Age/Sex: 39 / FADM Date: 03/31/25 Loc: HO.MAMMO Attending Dr: Leo Joiner MD Ordering Physician: Leo Joiner MDResults: 3.6MProbab ly Benign Finding - Short 6 M F/U Suggested Date of Service: 03/31/25Follow Up: 6 Month F/U Procedure(s): MM tomosynthesis diagnostic LT Accession Number(s): [id number] cc: Name,Leo MOJICA Reason For Exam: LT [...] MD in OV> 03/31/25 0852 DD/ TD/TT: 03/31/2535 [employer]: Leo Joiner MD IMG BI PROCEDURES Edited Result - Final documented in this encounter Visit Diagnoses Not on filedocumented in this encounter Additional Health Concerns Assessment Noted Time PHQ-9 Depression Total Score: 2 07/07/20 23 10:07 AM EST documented as of this encounter Care Teams Internet Designer Relationship Specialty Start Date End Date Name, MD Leo [address] [place] [address] PCP - General Internal Medicine 07/25/23 documented as of this encounter
== END 2025-03-31 08:24 | disposition home or self-care (01) ==
LOC: HO.MAMMO 08:23
PROVIDERS: PCP Internal Medicine Geriatric Medicine; Visit Provider Internal Medicine Geriatric Medicine
DX: R92.2 Inconclusive mammogram (principal)
CPT/HCPCS: 77061; 77065

== ENCOUNTER → 2025-03-31 08:30 | Outpatient (BNV) | payer MEDICAID, SELFPAY | PROVIDERS: PCP Internal Medicine Geriatric Medicine; Visit Provider Radiology Body Imaging | DX: N64.89 Other specified disorders of breast (principal) | CPT/HCPCS: 77061; 77065 ==

== ENCOUNTER 2025-05-15 16:42 | Outpatient (REF) | payer MEDICAID, SELFPAY ==
--- OUTSIDE RECORDS SUMMARY | 2025-05-15 13:00 | XMS_ITS | Encounter Summary ---
Author Organization [employer] Address [address] [facility] 7[address] [place] [address] Care Team Providers Care Sales Demonstrator Name Role Phone Name, Leo MOJICA Primary Care Provider Reason for Visit * Reason Comments sickonsite Encounter Details Date Type Department Care Team ([facility] Contact Info) Description 05/15/2025 1:00 PM EST Office Visit [facility] MED[facility]INE [address] [place], [place] [phone] Nora Ng, JANAY [address] [place], [place] [phone] Abnormal uterine bleeding (AUB) (Primary Dx); Routine cervical smear; Screening examination for venereal disease; Vulvar irritation; Candidiasis of vulva and vagina Social History Tobacco Use Types Packs/Day Years [...] Patient Health Questionnaire-2 Score 0 07/07/2023 Comments No Intention Date Recorded No desire to become (finding) 1 07/15/2024 Sex and Gender Information Value Date Recorded Sex Assigned at Female 05/09/2022 10:29 AM EDT Legal Sex Female 10:29 AM EDT Gender Identity Female 05/09/2022 10:29 AM EDT Sexual Orientation Straight 05/09/2022 10 :29 AM EDT documented as of this encounter Last Filed Vital Signs Vital Sign Reading Time Taken Comments Blood Pressure 130/78 05/15/2025 1:05 PM EST Pulse 95 05/15/2025 1:05 PM EST Temperature 37.1 C (98.7 F) 05/15/2025 1:05 PM EST Respiratory Rate 16 05/15/2025 1:05 PM EST Oxygen Saturation 97% 05/15/2025 1:05 PM EST Inhaled Oxygen Concentration - - Weight 70.9 kg (156 lb 6.4 oz) 05/15/2025 1:05 P M EST Height - - Body Mass Index 29.55 10/17/2024 12:57 PM EDT documented in this encounter Progress Notes * Nora Ng CNM - 05/15/2025 1:00 PM EST Subjective Patient ID: Leia Ashby is a 39 y.o. female who presents for AUB New onset spotting starting a couple days after LMP 05/01. Typically monthly menses x 5d. Also notes vulvar itching. Changes body products and pad brands frequently. 1 AMAB partner x 28y, no safety concerns. Has tubal ligation, happy with method. Remote history of chlamydia. Last pap 10 years ago, agrees to this with pap based STI testing today. Notes some discomfort with sex in past few months. Review of Systems Constitutional: Negative for chills and fever. Endocrine: Negative for cold intolerance and heat intolerance. Genitourinary: Positive for dyspareunia, menstrual problem and vaginal bleeding. Negative for dysuria, frequency, hematuria, pelvic pain, vaginal discharge and vaginal pain. Skin: Positive for rash. Objective BP 130/78 (BP Location: Left arm, Patient Position: Sitting, BP Cuff Size: Adult) Pulse 95 Temp98.7 ??F (37.1 ??C) (Oral) Resp 16 Wt 156 lb 6.4 oz (70.9 kg) LMP 05/01/2025 (Exact Date) SpO2 97% BMI 29.55 kg/m?? Physical Exam Chef & Owner present: declines social work nurse. Constitutional: Appearance: Normal appearance. Genitourinary: General: Normal vulva. Labia: Right: Rash present. No tenderness, lesion or injury. Left: Rash present. No tenderness, lesion or injury. Vagina: No signs of injury and foreign body. Vaginal discharge present. No erythema, tenderness, bleeding or lesions. Cervix: No cervical motion tenderness, discharge, friability, lesion, erythema, cervical bleeding or eversion. Uterus: Normal. Not enlarged and not tender. Adnexa: Right adnexa normal and left adnexa normal. Right: No mass, tenderness or fullness. Left: No mass, tenderness or fullness. Comments: Well defined erythema over bilateral inner and outer labia and introitus. Scant blood in vagina. Neurological: Mental Status: She is alert. Psychiatric: Mood and Affect: Mood normal. Behavior: Behavior normal. Assessment/Plan Diagnoses and all orders for this visit: Abnormal uterine bleeding (AUB) - POCT , urine manually resulted test negative today. Will send pap/STI and contact with results. If all negative, for pelvic ultrasound. Seek care if pelvic pain or heavy bleeding. Routine cervical smear - Pap Smear Cotest today. Repeat 5 years if normal/HPV negative. Screening examination for venereal disease - STI testing add on (NG, CT, Trich) Pap based STI testing. Vulvar irritation - POCT fern test, vaginal fluid manually resulted Yeast on wet mount. Will treat with terconazole. Avoid scented bath/body products. Apply cream to affected area on vulva and use applicatorful vaginally x 7 nights Candidiasis of vulva and vagina For terconazole as prescribed. Seek care if symptoms worsen or persist. Other orders - terconazole (Terazol 7) 0.4 % vaginal cream; Insert 1 applicator into the vagina at bedtime for 7days. documented in this encounter Plan of Treatment Scheduled Orders Name Type Priority Associated Diagnoses Orde r Schedule Pap Smear Pathology and Cytology Routine Routine cervical smear Ordered: 05/15/2025 STI testing add on (NG, CT, Trich) Pathology and Cytology Routine Screening examination for venereal disease Ordered: 05/15/2025 documented as of this encounter Procedures Procedure Name Priority Date/Time Associated Diagnosis Comments POCT WET MOUNT/ARY Routine 05/15/2025 1: 29 PM EST Vulvar irritation POCT , URINE Routine 05/15/2025 1:26 PM EST Abnormal uterine bleeding (AUB) documented in this encounter Results * POCT fern test, vaginal fluid manually resulted (05/15/2025 1:29 PM EST) ARY Prep Positive Comment:pH 4.5, neg whiff, n eg clue, neg trich, neg wbc, pos hyphae Vaginal Fluid Vaginal structure / Unknown 05/15/2025 1:29 PM EST Nora Ng CNM POINT OF CARE TEST ENTER/ EDIT ORDERABLES Final Result * POCT , urine manually resulted (05/15/2025 1:26 PM EST) Preg Test, Ur Negative Negative, Indeterminate, None Detected, Invalid, Specimen unsatisfactory for evaluation, Weakly Positive, 2+ QC Media Lot # [id number] Lot# Expiration Date [id number] Urine 05/15/2025 1:26 PM EST Nora Ng CNM POINT OF CARE TEST ENTER/ EDIT ORDERABLES Final Result documented in this encounter Visit Diagnoses Diagnosis Abnormal uterine bleeding (AUB)- Primary Routine cervical smear Screening for malignant neoplasm of the cervix Screening examination for venereal disease Vulvar irritation Candidiasis of vulva and vagina documented in this encounter Additional Health Concerns Assessment Noted Time PHQ-9 Depression Total Score: 2 07/07/20 23 10:07 AM EST documented as of this encounter Care Teams Sales Demonstrator Relationship Specialty Start Date End Date Name, MD Leo [address] [place] [id number] PCP - General Internal Medicine 07/25/23 documented as of this encounter
--- OUTSIDE RECORDS SUMMARY | 2025-05-15 18:50 | XMS_ITS | Clinical Summary ---
Author Organization [employer] Address [address] [facility] [address] [place] [address] Care Team Providers Care Sebd Teacher Name Role Phone Name, Leo MOJICA Primary Care Provider [phone] Allergies No known active allergies Medications Blood [...] MOUTH WITH BREAKFAST 90 tablet 4 Active terconazole (Terazol 7) 0.4 % vaginal cream Insert 1 applicator into the vagina at bedtime for 7 days. 45 g 5 05/22/20 25 Active Active Problems Problem Noted Date Diagnosed [...] Dx mammo remi to be sent to [facility] breast [facility] per protocol (see encounters) Elevated blood pressure reading 07/25/2023 Assessment & Plan (07/25/2023 2:09 PM EST): BP machine sent to [facility] pharmacy, should check BP three times [...] Encounters Date Type Department Care Team Description 05/15/2025 1:00 PM EST Office Visit [facility] MEDICINE [address] [place] [phone] Nora Ng CNM Abnormal uterine bleeding (AUB) (Primary Dx); Routine cervical smear; Screening examination for venereal disease; Vulvar irritation; Candidiasis of vulva and vagina 05/15/2025 Travel 05/14/2025 Telephone [facility] MEDICINE [address] [place] [phone] Leo Joiner MD Referral 03/31/2025 Orders Only [facility] [address] [place] [address] Leo Joiner MD from Last 3 Months Social History Tobacco [...] oz) 05/15/2025 1:05 P M EST Height 154.9 cm (5' 1 ) 10/17/2024 12:57 PM EDT Body Mass Index 29.55 10/17/2024 12:57 PM EDT Plan of Treatment Health Maintenance Due Date Last Done Comments HIV Screening 1984 Disability Screening 1984 Alcohol/Substance Use Screening 1996 HPV Vaccines (1 - 3-dose series) 1999 Hepatitis C Screening 2002 DTaP/Tdap/Td Vaccines (1 - Tdap) 2003 Hepatitis B Vaccines (1 of 3 - 19+ 3-dose series) 2003 Pap Smear 2005 Cervical Cancer Screening 2014 HPV/Cotest 2014 Depression Screening 07/07/2024 07/07/2023, 07/07/20 SDOH Screening 07/07/2024 07/07/2023 COVID-19 Vaccine ( season) 2025 04/02/2021, 03/12/2021 Influenza Vaccine (#1) 2025 Diagnostic Breast Imaging 09/28/20252024, 09/26/2024, 09/26/2024, Additional history exists Mammogram 09/28/2025 03/31/2025, 09/08, 09/26/2024, Additional history exists Family Planning (PISQ) 05/15/2026 05/15/2025 Tobacco Screening 05/15/2026 05/15/2025 Zoster Vaccines (1 of 2) 2034 RSV [...] 1:26 PM EST Abnormal uterine bleeding (AUB) BI MAMMOGRAM DIAGNOSTIC TOMOSYNTHESIS LEFT Routine 03/31/2025 8:28 AM EDT from Last 3 Months Results * POCT fern test, vaginal fluid manually resulted (05/15/2025 1:29 PM EST) ARY Prep Positive Comment:pH 4.5, neg whiff, n eg clue, neg trich, neg wbc, pos hyphae Vaginal Fluid Vaginal structure / Unknown 05/15/2025 1:29 PM EST Nora Ng [facility] POINT OF CARE TEST ENTER/ EDIT ORDERABLES Final Result * POCT , urine manually resulted (05/15/2025 1:26 PM EST) Preg Test, Ur Negative Negative, Indeterminate, None Detected, Invalid, Specimen unsatisfactory for evaluation, Weakly Positive, 2+ QC Media Lot # [id number] Lot# Expiration Date [id number] Urine 05/15/2025 1:26 PM EST [facility] POINT OF CARE TEST ENTER/ EDIT ORDERABLES Final Result * BI Mammogram Diagnostic Tomosynthesis Left (03/31/2025 8:28 AM EDT) Anatomical Region Laterality Modality Breast Left Mammography 03/31/2025 8:28 AM EDT Narrative 03/31/2025 8:54 AM EDT [facility] [address] [place] [address] Dr. Dougherty, [place] [address] Mammography Report Signed Patient: Leia Ashby MR#: [id number] 6 : 1985 Acct:[id number] Age/Sex: 39 / F ADM Date: 03/31/25 Loc: HO.MAMMO Attending Dr: Leo Joiner MD Ordering Physician: Leo Joiner MD Results: 3.6MProbab ly Benign Finding - Short 6 M F/U Suggested Date of Service: 03/31/25 Follow Up: 6 Month F/U Procedure(s): MM tomosynthesis diagnostic LT Accession Number(s): [id number] cc: Name,Leo MOJICA Reason For Exam: LT [...] Whitfield MD in OV> 03/31/25 0852 DD/ 0828 TD/TT: 03/31/2535 Program Director Substance Abuse: Procedure Note Donotuseinterpreter, Image - 03/31/2025 [facility] [address] [place] [address] Mammography Report Signed Patient: Leia Ashby RMR#: [id number] 6 : 1985Acct:[id number] Age/Sex: 39 / FADM Date: 03/31/25 Loc: HO.MAMMO Attending Dr: Leo Joiner MD Ordering Physician: Leo Joiner MDResults: 3.6MProbab ly Benign Finding - Short 6 M F/U Suggested Date of Service: 03/31/25Follow Up: 6 Month F/U Procedure(s): MM tomosynthesis diagnostic LT Accession Number(s): [id number] cc: Rhys,Leo MOJICA Reason For Exam: LT [...] Whitfield MD 03/31/2025 08:52 AM EDT RP Workstation: [email or web address] Dictated By: Edwin Whitfeild MD Signed By: <Electronically signed by Edwin Whitfield MD in OV> 03/31/2552 DD/ 7 TD/TT: 03/31/25834 Program Director Substance Abuse: us Leo Joiner MD IMG BI PROCEDURES Edited Result - Final from Last 3 Months Insurance * Guarantor: Leia Ashby Account Type Relation to Patient Date of Phone Billing Address Personal/[place] [address] * Guarantor: Leia Ashby Account Type Relation to Patient Date of Phone Billing Address Personal/Family Self [address] [place] Care Teams Sebd Teacher Relationship Specialty Start Date End Date Name, MD Leo [address] [place] [phone] PCP - General Internal Medicine 07/25/23
--- OUTSIDE RECORDS SUMMARY | 2025-05-15 18:50 | XMS_ITS | Encounter Summary ---
Author Organization [employer] Address [address] [facility] 7t [place] [address] Care Team Providers Care Drop Clipper Name Role Phone Name, Leo MOJICA Primary Care Provider [phone] Leo Joiner MD Primary Care Provider Encounter [...] on filedocumented in this encounter Care Teams Drop Clipper Relationship Specialty Start Date End Date Leo Joiner MD [address] [place] [address] PCP - General Family Medicine 02/08/16 07/12/23 Leo Joiner MD [address] [place] [address] PCP - General Internal Medicine 07/25/23 documented as of this encounter
--- OUTSIDE RECORDS SUMMARY | 2025-05-15 18:50 | XMS_ITS | Encounter Summary ---
Author Organization [employer] Address [address] [facility] [address] 7[address] [place] [address] Care Team Providers Care Bioassayist Name Role Phone Name, Leo MOJICA Primary Care Provider [phone] Reason for Visit * Reason Onset Date Comments Referral 05/14/2025 Encounter Details Date Type Department Care Team ([facility] st Contact Info) Description 05/14/2025 Telephone [facility] MEDICINE [address] [place], [place] [phone] Name, MD Leo [address] [place], [place] [phone] Referral Social History Tobacco Use Types Packs/Day Years [...] AM EDT documented as of this encounter Miscellaneous Notes * Telephone Encounter - Goldie Mooney RN - 05/15/2025 11:10 AM EST TC placed to pt via [employer] translator interpreter (ID#[id number]) regarding referral request for OBGYN. Pt reports after the completion of their menstrual period, they keep getting constant infections. Pt reports vaginal itching and reddish discharge following completion of menstrual period for 1-2 weeks after. Pt denies odor to vaginal discharge. Pt booked for sick on site today with Nora Ng CNM at 1:00 PM. Pt agreeable to appointment and denies questions at this time. * Telephone Encounter - Lily Strange - 05/15/2025 11:02 AM EST Tc from [pt retuning call * Telephone Encounter - Goldie Mooney RN - 05/15/2025 9:12 AM EST TC placed to pt via [employer] translator interpreter (ID#[id number]) regarding referral request for OBGYN. No answer, LVMto call office back and ask to speak to the blue team nurses. * Telephone Encounter - Khalif Crespo - 05/14/2025 1:27 PM EST Tc from pt requesting a referral to OBGYN , pt requesting one that preferably speaks greenlandic Contact pt at [phone] (greenlandic) documented in this encounter Plan of Treatment Not on file documented as of this encounter Visit Diagnoses Not on filedocumented in this encounter Additional Health Concerns Assessment Noted Time PHQ-9 Depression Total Score: 2 07/07/20 23 10:07 AM EST documented as of this encounter Care Teams Bioassayist Relationship Specialty Start Date End Date Name, MD Leo [address] [place] [address] PCP - General Internal Medicine 07/25/23 documented as of this encounter
--- OUTSIDE RECORDS SUMMARY | 2025-05-15 18:50 | XMS_ITS | Encounter Summary ---
Author Organization [employer] Address [address] [facility] [address] [place] [address] Care Team Providers Care Print Shop Helper Name Role Phone Name, Leo MOJICA Primary Care Provider [phone] Encounter Details Date Type Department Care Team (Latest Contact Info) Description 05/15/2025 Travel Social History Tobacco Use Types Packs/Day Years [...] Health Questionnaire-2 Score 0 07/07/2023 Comments No Sex and Gender Information Value Date Recorded [...] documented as of this encounter Care Teams Print Shop Helper Relationship Specialty Start Date End Date Name, MD Leo [address] [place] [id number] PCP - General Internal Medicine 07/25/23 documented as of this encounter
[2025-05-17 18:38] LABS: C. trachomatis RNA TMA NOT DETECTED (NOT DETECTED); N. gonorrhoeae RNA TMA NOT DETECTED (NOT DETECTED)
[2025-06-04 11:36] LABS: Trichomonas (NAAT) NOT DETECTED
== END 2025-05-15 16:43 | disposition home or self-care (01) ==
LOC: HO.LNP 16:42
PROVIDERS: Visit Provider Advanced Practice Midwife
DX: Z12.4 Encounter for screening for malignant neoplasm of cervix (principal); Z11.51 Encounter for screening for human papillomavirus (HPV); Z20.2 Contact with and (suspected) exposure to infections with a predominantly sexual mode of transmission
CPT/HCPCS: 87491; 87591; 87626; 87661; 88175

== ENCOUNTER 2025-07-01 13:26 | Outpatient (REF) | payer MEDICAID, SELFPAY ==
--- OUTSIDE RECORDS SUMMARY | 2025-06-26 08:00 | XMS_ITS | Encounter Summary ---
Author Organization [employer] Address [address] [facility] [address]t [place] [address] Care Team Providers Care Overseer Kosher Kitchen Name Role Phone Name, Leo MOJICA Primary Care Provider [phone] Reason for Visit * Reason Comments Extraction Encounter Details Date Type Department Care Team ([facility] st Contact Info) Description 06/26/2025 8:00 AM EST Office Visit [facility] ADULT DENTAL [address] [place], [place] [phone] Foster Morrison, JACOBS [address] [place], [place] [phone] Non-restorable tooth (Primary Dx); Severe dental caries Social History Tobacco Use Types Packs/Day Years Used Date Smoking Tobacco: Never Smokeless Tobacco: Never Alcohol Use Standard Drinks/Week Comments Never 0 (1 standard drink = 0.6 oz pur e alcohol) Alcohol Answer Date Recorded How often do you have a drink containing alcohol ? 0 06/26/2025 Average Number of Drinks Not on file 025 How often do you have six or more drinks on one occasion? 0 06/26/2025 Depression Answer Date Recorded Patient Health Questionnaire-9 [...] the past 12 months, has t he [employer] gas, oil or water company threatened to [...] Sign Reading Time Taken Comments Blood Pressure 122/68 06/26/2025 8:03 AM EST Pulse 70 06/26/2025 8:03 AM EST Temperature - - Respiratory Rate - - Oxygen Saturation - - Inhaled Oxygen Concentration - - Weight - - Height - - Body Mass Index - - documented in this encounter Progress Notes * Foster Morrison DDS - 06/26/2025 8:00 AM EST Patient ID: Leia Ashby is a 40 y.o. female. Time Out: Timeout Date: 06/26/25, Timeout Time: 0810 (ext on tooth#2) Location: [facility] Tooth: Maxilla and #2 Procedure: Extraction Verified the above with patient, physician office assistant, and provider. Confirmed via patient's chart, intraorally and by radiographs. Computer Science Teacher: not applicable Chief Complaint Patient presents with Extraction Medical Hx: Vitals: Blood pressure 122/68, pulse 70. Medical History[1] Medications: Encounter Medications[2] Consent Obtained: The risks, benefits, indications, potential complications, and alternatives were explained to the patient and informed consent was obtained with good understanding. Treatment Provided: Dental procedures in this visit D9450 - CASE PRESENTATION, DETAILED AND EXTENSIVE TREATMENT PLANNING (Completed) Service provider: Foster Morrison DDS Billing provider: Foster Morrison DDS [id number] - EXTRACTION, ERUPTED TOOTH REQ REMOVAL OF BONE AND/OR SECTIONING OF TOOTH 2 (Completed) Service provider: Foster Morrison DDS Billing provider: Foster Morrison DDS Diagnosis: Non-restorable tooth, severe caries Topical: 20% Benzocaine Anesthesia: 2% Lidocaine (Xylocaine) w/ 1:100,000 epinephrine Number of Cartridges: 2 Injection Type: Buccal infiltration, Palatal infiltration, and Intrapapillary injection Confirmed profound anesthesia. Pharyngeal curtain and bite block placed. Removed tooth with elevators and forceps. Apices intact. Surgical Extraction: Yes, sectioned tooth with surgical handpiece and bur #2 Socket curetted & irrigated with sterile water. Compressed alveolar bone. Sutures: None Needed All adjacent teeth intact. Hemostasis achieved. Complications: None. Pt tolerated procedure well . Prescription sent to X on file. Written and verbal post-op instructions given. Patient discharged in stable condition; ambulatory, alert, and oriented. NV: F/U as needed / Spar Cap Beveler: Nalini Davalos Dentist: Foster Morrison DDS [1] Past Medical History: Diagnosis Date Gastroesophageal reflux disease 07/25/2023 [2] Outpatient Encounter Medications as of 06/26/2025 Medication Sig Dispense Refill Blood Pressure Monitor kit Use as directed 3x/week 1 kit 0 ferrous sulfate 325 (65 Fe) MG EC tablet TAKE 1 TABLET BY MOUTH WITH BREAKFAST 90 tablet 0 Omeprazole 20 MG tablet delayed-release Take 1 tablet by mouth 2 times daily. 180 tablet 0 No facility-administered encounter medications on file as of 06/26/2025. documented in this encounter Plan of Treatment Upcoming Encounters Date Type Department Care Team (Late st Contact Info) Description 07/22/2025 9:00 AM EST Office Visit [facility] ADULT DENTAL [address] [place] [address] Layl Kelsey DDS [address] [place] [address] documented as of this encounter Procedures Procedure Name Priority Date/Time Associated Diagnosis Comments 2 EXTRACTION, ERUPTED TOOTH REQ REMOVAL OF BONE AND/OR SECTIONING OF TOOTH Routine 06/26/2025 8:00 AM EST CASE PRESENTATION, DETAILED AND EXTENSIVE TREATMENT PLANNING Routine 06/26/2025 8:00 AM EST documented in this encounter Visit Diagnoses Diagnosis Non-restorable tooth- Primary Severe dental caries documented in this encounter Additional Health Concerns Assessment Noted Time PHQ-9 Depression Total Score: 2 07/07/20 23 10:07 AM EST documented as of this encounter Care Teams Overseer Kosher Kitchen Relationship Specialty Start Date End Date Name, MD Leo [address] [place] [phone] PCP - General Internal Medicine 07/25/23 documented as of this encounter
--- NOTE | ~2025-07-01 | US_ITS ---
EXAMINATION: US PELVIS TRANSABDOMINAL AND TRANSVAGINAL HISTORY: AUB COMPARISON: There are no prior studies available for comparison. TECHNIQUE: Transabdominal and endovaginal real-time 2D landaverde-scale ultrasound was performed. FINDINGS: Uterus: The uterus is enlarged, measuring 10.8 x 6.6 x 7.8 cm. Myometrium demonstrates heterogeneous echotexture. Multiple fibroids are noted as described below: Left anterior fibroid measures 1.7 x 1.6 x 1.5 cm. Fundal fibroid measures 1.0 x 1.1 x 1.0 cm. Left fundal fibroid measures 3.8 x 3.0 x 3.7 cm. Right fundal fibroid measures 1.5 x 1.2 x 1.4 cm. Right-sided fibroid measures 2.9 x 2.0 x 2.6 cm. Posterior submucosal fibroid measures 5.1 x 3.6 x 3.5 cm. Endometrium: The endometrial stripe measures 9 mm in thickness. There is a small amount of fluid in the endometrial canal. There are nabothian cysts in the cervix. Right ovary: The right ovary measures 2.3 x 1.8 x 2.8 cm. There is a 2.2 x 1.6 x 2.4 cm hypoechoic structure in the right ovary which likely represents a corpus luteum. Left ovary: The left ovary measures 2.9 x 1.8 x 2.3 cm. The left ovary is normal in size and echotexture. Pelvic fluid: none. US/US pelvic and transvaginal IMPRESSION: Fibroid uterus as described. Electronically signed by: Neal Curran MD 07/01/2025 02:57 PM [facility]
--- OUTSIDE RECORDS SUMMARY | 2025-07-01 14:35 | XMS_ITS | Clinical Summary ---
Author Organization [employer] Address [address] [facility] [address] [place] [address] Care Team Providers Care Refrigerator Car Icer Name Role Phone Name, Leo MOJICA Primary Care Provider [phone] Allergies No known active allergies Medications Blood [...] MOUTH WITH BREAKFAST 90 tablet 4 Active acetaminophen (Tylenol 8 Hour) 650 MG ER tablet Take 1 tablet (650 mg) by mouth every 8 (eight) hours if needed for mild pain. Do not crush, chew, or split. 15 tablet 5 Active ibuprofen 600 MG tablet Take 1 tablet (600 mg) by mouth 3 times daily. 15 tablet 5 Active amoxicillin (Amoxil) 500 MG capsule Take 1 capsule (500 mg) by mouth every 8 (eight) hours for 7 days. 21 capsule 5 07/03/20 25 Active Active Problems Problem Noted Date Diagnosed Date Non-restorable tooth 06/26/2025 Severe dental caries 06/26/2025 Atypical chest pain 2025 Abscess of right breast 10/17/2024 Assessment & [...] Dx mammo remi to be sent to [facility] per protocol (see encounters) Elevated blood pressure reading 07/25/2023 Assessment & Plan (07/25/2023 2:09 PM EST): BP machine sent to [facility], should check BP three times per [...] Encounters Date Type Department Care Team Description 06/26/2025 8:00 AM EST Office Visit [facility] [address] [place] [address] Foster Morrison DDS Non-restorable tooth (Primary Dx); Severe dental caries 06/25/2025 Travel 06/04/2025 Orders Only [facility] [address] [facility] [place] [phone] Christopher Smith CNM Abnormal uterine bleeding (AUB) (Primary Dx) 05/26/2025 Results Follow-Up [facility] [address] [facility] [place] [phone] Christopher Smith CNM Pap Smear, POCT , urine manually resulted, STI testing add on (NG, CT, Trich) 2025 1:00 PM EST Office Visit [facility] [address] [place] [phone] Laly Kelsey, DDS Symptomatic irreversible pulpitis (Primary Dx) 2025 Telephone [facility] [address] [place] [phone] Foster Morrison DDS 05/15/2025 1:00 PM EST Office Visit [facility] [address] [place] [phone] Christopher Smith CNM Abnormal uterine bleeding (AUB) (Primary Dx); Routine cervical smear; Screening examination for venereal disease; Vulvar irritation; Candidiasis of vulva and vagina 05/15/2025 Orders Only [address] [address] Christopher Smith CNM 05/15/2025 Travel 05/14/[address] [address] Leo Joiner MD Referral from Last 3 Months Social History Tobacco [...] the past 12 months, has t he [employer], gas, oil or water [employer] threatened to shut off services in your [...] Pulse 70 06/26/2025 8:03 AM EST Temperature 37.1 C (98.7 F) 05/15/2025 1:05 PM EST Respiratory Rate 16 05/15/2025 1:05 PM EST Oxygen Saturation 97% 05/15/2025 1:05 PM EST Inhaled Oxygen Concentration - - Weight 70.9 kg (156 lb 6.4 oz) 05/15/2025 1:05 P M EST Height 154.9 cm (5' 1 ) 10/17/2024 12:57 PM EDT Body Mass Index 29.55 10/17/2024 12:57 PM EDT Plan of Treatment Upcoming Encounters Date Type Department Care Team (Late st Contact Info) Description 07/22/2025 9:00 AM EST Office Visit [facility] [address] [place] [address] Laly Kelsey, DDS [address] [place] [address] Health Maintenance Due Date Last Done Comments HIV Screening 1985 Disability Screening 1985 HPV Vaccines (1 - 3-dose series) 1999 Hepatitis C Screening 2002 DTaP/Tdap/Td Vaccines (1 - Tdap) 2003 Hepatitis B Vaccines (1 of 3 - 19+ 3-dose series) 2003 Dental Oral Exam 05/11/2019 11/07/2018 Dental Prophylaxis 05/11/2019 11/07/2018 Depression Screening 07/07/2024 07/07/2023, 07/07/20 23 SDOH Screening 07/07/2024 07/07/2023 COVID-19 Vaccine ( season) 2025 04/02/2021, 03/12/2021 Influenza Vaccine (#1) 2025 Diagnostic Breast Imaging 09/28/20252024, 09/26/2024, 09/26/2024, Additional history exists Mammogram 09/28/2025 03/31/2025, 03/11, 09/26/2024, Additional history exists Dental X-Ray: Full Mouth 10/26/2025 10/25/2022, 10/09 Family Planning (PISQ) 05/15/2026 05/15/2025 Dental X-Ray: Bitewings 05/20/2026 2025 Alcohol/Substance Use Screening 06/26/2026 06/26/2025 Tobacco Screening 06/26/2026 06/26/2025 Cervical Cancer Screening 05/15/2030 HPV/Cotest 05/15/2030 05/15/2025 Pap Smear 05/15/2030 05/15/2025 Zoster Vaccines (1 of 2) 2034 [...] TREATMENT PLANNING Routine 06/26/2025 8:00 AM EST CASE PRESENTATION, DETAILED AND EXTENSIVE TREATMENT PLANNING Routine 2025 1:00 PM EST INTRAORAL - PERIAPICAL EACH ADDITIONAL RADIOGRAPHIC IMAGE Routine 2025 1:00 PM EST BITEWING - SINGLE RADIOGRAPHIC IMAGE Routine 2025 1:00 PM EST INTRAORAL - PERIAPICAL FIRST RADIOGRAPHIC IMAGE Routine 2025 1:00 PM EST PALLIATIVE (EMERGENCY) TREATMENT OF DENTAL PAIN - MINOR PROCEDURE Routine 2025 1:00 PM EST CHLAMYDIA/N. GONORRHOEAE AND T. VAGINALIS RNA, QUAL,TMA Routine 05/15/2025 1:40 PM EST Screening examination for venereal disease PAP SMEAR Routine 05/15/2025 1:40 PM EST Routine cervical smear OTHER REF TEST - MISC Routine 05/15/2025 1:40 PM EST HPV DNA, LOW/HIGH RISK Routine 1:40 PM EST POCT WET [place] Routine 05/15/2025 1: 29 PM EST Vulvar irritation POCT , URINE Routine 05/15/2025 1:26 PM EST Abnormal uterine bleeding (AUB) BI MAMMOGRAM DIAGNOSTIC TOMOSYNTHESIS LEFT Routine 03/31/2025 8:28 AM EDT PROPHYLAXIS - ADULT Routine 11/07/2018 1 2:00 AM EDT COMPREHENSIVE ORAL EVALUATION - NEW OR ESTABLISHED PATIENT Routine 11/07/2018 12:00 AM EDT PANORAMIC RADIOGRAPHIC IMAGE Routine 11/03/2015 12:00 AM EDT from Last 3 Months or Most Recently Relevant to Health Maintenance Results * STI testing add on (NG, CT, Trich) (05/15/2025 1:40 PM EST) Trichomonas (NAAT) NOT DETECTED [facility] Comment:Analyte Value Refer ence RangeT vag RNA,QL TMA NOT DETECTED NOT DETECTEDPerforming SitesNL [employer] [facility]-[employer] [facility], [address] [place] [phone] Income Tax Administrator: Chet GabrielDCorrected results called to and read back by Zeb ELLIS at 11:30 on 06/04/2025t 1113 on 06/04/25 by WERO CTNG Ref Lab NOT DETECTED NOT DETECTED [facility] NG Ref Lab NOT DETECTED NOT DETECTED [facility] ThinPrep vial Cervix uteri structure / Unknown 05/15/2025 1:40 PM EST 05/16/2025 8:12 AM EST Narrative [facility] - 06/04/2025 11:36 AM EST Collection Date: [id number] by: HAL Goncalves: Cervix Christopher Smith CNM LAB CYTOLOGY ORDERABLES E dited Result - Final [facility] [address] [place] [address] [phone] * Other Reference Test - Misc (05/15/2025 1:40 PM EST) Other Ref Test Misc SEE NOTE [facility] Comment:SEE SCANNED REPORT I N EMR 05/15/2025 1:40 PM EST 05/16/2025 8:12 AM EST Narrative [facility] - 06/02/2025 4:15 PM EST Chlamydia/N. gonorrhoeae and T. vaginalis RNA, Qualitative, TMA REF [phone] Christopher Smith [facility] BLOOD ORDERABLES Deirdre l Result [facility] [address] [place] [phone] * HPV DNA, Low/High Risk (05/15/2025 1:40 PM EST) HPV High Risk Negative Negative [facility] HPV Genotype 16 Negative Negative [facility] HPV Genotype 18 Negative Negative [facility] Comment:HPV testing performe d at [facility] (CLIA#[id number]), [address] [place] [address].Testing for HPV was performed using the [employer] HUNTER 6800system. The presence of HPV in the female genital tract isassociated with a number of diseases, including cervicalcarcinoma. The HPV DNA high risk pool tests for HPV 31, 33,35, 39, 45, 51, 52, 56, 58, 59, 66 and 68. The testing forHPV 16 and 18 genotypes has also been performed. A positiveresult indicates detection of nucleic acid sequences fromone or more subtypes, whereas a negative result indicatessuch sequences were not detected. 05/15/2025 1:40 PM EST 05/16/2025 8:12 AM EST Christopher Smith [facility] BLOOD ORDERABLES Deirdre l Result Performing Organization Address City/[facility]/ZIP Co de Phone Number [facility] [address] [place] [phone] * Pap Smear (05/15/2025 1:40 PM EST) Swab Cervix uteri structure / Unknown 05/15/2025 1:40 PM EST 05/16/2025 8:12 AM EST Narrative [facility] - 05/26/2025 12:02 PM EST ----- ------- Name: Leia Ashby Age/Sex: 39/F : 1985 Unit#: [id number] Attend Dr: CHRISTOPHER SMITH CNM Re05/15/[address] [facility] REF Location: [facility] Disch: ----- ------- SPEC : [id number] RECD: 05/16/25 STATUS: DAMIÁN MELO NUM: [id number] BRENNAN: 05/15/25-[address] [facility] [address]: CHRISTOPHER SMITH CNM ENTERED: 05/16/25 SP TYPE: Pap Smr OTHR DR: ORDERED: Pap Smear, PAP path review Interpretation General Category: Negative for intraepithelial lesion/malignancy. Adequacy: Endocervical component present. Interpretation: Reactive cellular changes. Fungal organisms consistent with Kylee species. HPV High Risk: Negative HPV Genotyping 16: Negative HPV Genotyping 18: Negative Clinical Information LMP: Unknown date Previous PAP test: Unknown date/findings Other history: Routine cervical smear Material Received ThinPrep-Cervical PAP Disclaimer As of May 01, 2024, the technical services to include automated prescreening performed by the ThinPrep Imaging System, PAP screening and HPV testing will be performed at [facility] (CLIA #[id number]), [address] [place] [address]. Testing for HPV was performed using the [employer] HUNTER 6800 system. The presence of HPV in the female genital tract is associated with a number of diseases, including cervical carcinoma. The HPV DNA high risk pool tests for HPV 31, 33, 35, 39, 45, 51, 52, 56, 58, 59, 66 and 68. The testing for HPV 16 and 18 genotypes has also been performed. A positive result indicates detection of nucleic acid sequences from one or more subtypes, whereas a negative result indicates such sequences were not detected. All professional services are performed by [facility] ([address] [place], [place] [id number]; ; CLIA #[id number]). The PAP Test is a screening procedure with the inherent possibility of both false negative and false positive results. Results should be interpreted in the context of historic and current clinical findings. Reliability of the PAP Test is enhanced by performing the test on a regular repetitive basis. CONTINUED ON NEXT PAGE ----- ------- Name: Leia Ashby Age/Sex: 39/F : 1985 Unit#: [id number] Attend Dr: CHRISTOPHER SMITH CNM Re05/15/25 Status: DEP REF Location: [facility] Disch: ----- ------- SPEC : [id number] RECD: 05/16/25 STATUS: DAMIÁN MELO NUM: [id number] BRENNAN: 05/15/25-[address] [facility] [address]: CHRISTOPHER SMITH CNM ENTERED: 05/16/25-0851 SP TYPE: Pap [facility] : ORDERED: Pap Smear, PAP path review ----- ------- Signed (signature on file) Brook Santiago MD 05/26/25 1202 ----- ------- END OF REPORT Christopher ROMEO LAB CYTOLOGY ORDERABLES F inal Result [facility] [address] [place] [phone] * POCT fern test, vaginal fluid manually resulted (05/15/2025 1:29 PM EST) [facility] ARY Prep Positive Comment:pH 4.5, neg whiff, n eg clue, neg trich, neg wbc, pos hyphae Vaginal Fluid Vaginal structure / Unknown 05/15/2025 1:29 PM EST Christopher ROMEO POINT OF CARE TEST ENTER/ EDIT ORDERABLES Final Result * POCT , urine manually resulted (05/15/2025 1:26 PM EST) [facility] Preg Test, Ur Negative Negative, Indeterminate, None Detected, Invalid, Specimen unsatisfactory for evaluation, Weakly Positive, 2+ QC Media Lot # [id number] Lot# Expiration Date [id number] Urine 05/15/2025 1:26 PM EST Christopher Smith CNM POINT OF CARE TEST ENTER/ EDIT ORDERABLES Final Result * BI Mammogram Diagnostic Tomosynthesis Left (03/31/2025 8:28 AM EDT) Anatomical Region Laterality Modality Breast Left Mammography 03/31/2025 8:28 AM EDT Narrative 03/31/2025 8:54 AM EDT [facility] [address] [place] [address] Mammography Report Signed Patient: Leia Ashby MR#: [id number] 6 : 1985 Acct:[id number] Age/Sex: 39 / F ADM Date: 03/31/25 Loc: HO.MAMMO Attending Dr: Leo Joiner MD Ordering Physician: Leo Joiner MD Results: 3.6MProbab ly Benign Finding - Short 6 M F/U Suggested Date of Service: 03/31/25 Follow Up: 6 Month F/U Procedure(s): MM tomosynthesis diagnostic LT Accession Number(s): [id number] cc: Leo Joiner MD Reason For Exam: [...] in OV> 03/31/2552 DD/ 7 TD/TT: 03/31/25834 Marine Engine Machinist: Procedure Note Donotuseinterpreter, Image - 03/31/2025 [facility] [address] [place] [address] Mammography Report Signed Patient: Leia Ashby RMR#: [id number] 6 : 1985Acct:[id number] Age/Sex: 39 / FADM Date: 03/31/25 Loc: HO.MAMMO Attending Dr: Leo Joiner MD Ordering Physician: Leo Joinerults: 3.6MProbab ly Benign Finding - Short 6 M F/U Suggested Date of Service: 03/31/25Follow Up: 6 Month F/U Procedure(s): MM tomosynthesis diagnostic LT Accession Number(s): [id number] cc: Leo Joiner MD Reason For Exam: [...] MD 03/31/2025 08:52 AM EDT Dictated By: Ewdin Whitfield MD Signed By: <Electronically signed by Edwin Whitfield MD in OV> 03/31/25 0852 DD/ 0828 TD/TT: 03/31/25 0835 Marine Engine Machinist: Leo Joiner MD IMG BI PROCEDURES Edited Result - Final from Last 3 Months or Most Recently Relevant to Health Maintenance Insurance [employer] [facility] MEDICA[facility] STAND ADULT Care Teams Refrigerator Car Icer Relationship Specialty Start Date End Date Name, MD Leo [address] [place] [phone] PCP - General Internal Medicine 07/25/23
--- OUTSIDE RECORDS SUMMARY | 2025-07-01 14:35 | XMS_ITS | Encounter Summary ---
Author Organization [employer] [facility] Address [address] [facility] [address] [place] [address] Care Team Providers Care Contract Administration Manager Name Role Phone Name, Leo MOJICA Primary Care Provider [phone] Leo Joiner MD Primary Care Provider [phone] Encounter Details Date Type Department Care Team (Latest Contact Info) Description 11/07/2018 Abstract [facility] CONVERSIONS Dental, Provider, DDS Social History Tobacco Use Types Packs/Day Years Used Date Smoking Tobacco: Never Assessed Comments Unknown Sex and Gender Information Value Date Recorded Sex Assigned at Female 05/09/2022 10:29 AM EDT Legal Sex Female 10:29 AM EDT Gender Identity Female 05/09/2022 10:29 AM EDT Sexual Orientation Straight 05/09/2022 10 :29 AM EDT documented as of this encounter Plan of Treatment Upcoming Encounters Date Type Department Care Team (Late st Contact Info) Description 07/22/2025 9:00 AM EST Office Visit [facility] [address] [place] [address] Cardoso-Naik, Laly, DDS [address] [place] [address] documented as of this encounter Visit Diagnoses Not on filedocumented in this encounter Care Teams Contract Administration Manager Relationship Specialty Start Date End Date Leo Joiner MD [address] [place] [address] PCP - General Family Medicine 02/08/16 07/12/23 Leo Joiner MD [address] [place] [address] PCP - General Internal Medicine 07/25/23 documented as of this encounter
--- OUTSIDE RECORDS SUMMARY | 2025-07-01 14:35 | XMS_ITS | Encounter Summary ---
Author Organization [employer] Address [address] [facility] [address] [place] [address] Care Team Providers Care Metal Mockup Maker Name Role Phone Name, Leo MOJICA Primary Care Provider [phone] Encounter Details Date Type Department Care Team (Late st Contact Info) Description 2025 Telephone [facility] [address] [place], [place] [phone] Foster Morrison, RITCHIE [address] [place], [place] [phone] Social History Tobacco Use Types Packs/Day Years [...] encounter Miscellaneous Notes * Telephone Encounter - Devika Bentley - 2025 9:02 AM EST UNABLE TO POST COVERAGE DUE TO PORTALS NOT BEING SET UP IN OUR NEW DEPARTMENT documented in this encounter Plan of Treatment Upcoming Encounters Date Type Department Care Team (Late st Contact Info) Description 07/22/2025 9:00 AM EST Office Visit [facility] [address] [place] [address] Laly Kelsey DDS [address] [place] [address] documented as of this encounter Visit Diagnoses Not on filedocumented in this encounter Additional Health Concerns Assessment Noted Time PHQ-9 Depression Total Score: 2 07/07/20 23 10:07 AM EST documented as of this encounter Care Teams Metal Mockup Maker Relationship Specialty Start Date End Date Name, MD Leo [address] [place] [address] PCP - General Internal Medicine 07/25/23 documented as of this encounter
== END 2025-07-01 13:27 | disposition home or self-care (01) ==
LOC: HO.HMGCX 13:26
PROVIDERS: PCP Internal Medicine Geriatric Medicine; Visit Provider Advanced Practice Midwife
DX: N93.9 Abnormal uterine and vaginal bleeding, unspecified (principal)
CPT/HCPCS: 76830; 76856

== ENCOUNTER → 2025-07-01 13:28 | Outpatient (BNV) | payer MEDICAID, SELFPAY | PROVIDERS: PCP Internal Medicine Geriatric Medicine; Visit Provider Radiology Diagnostic Radiology | DX: D25.9 Leiomyoma of uterus, unspecified (principal); N93.9 Abnormal uterine and vaginal bleeding, unspecified | CPT/HCPCS: 76830; 76856 ==